=== PATIENT | female | born 1960 | race Caucasian/White ===

== ENCOUNTER 2019-01-21 10:25 | Outpatient (CLI) | payer OTHER ==
--- NOTE | 2019-01-21 13:04 | RAD ---
CERVICAL SPINE SERIES 3 VIEWS WITH FLEXION AND EXTENSION: Date: 01/21/19 HISTORY: Neck pain. FINDINGS: There are severe arthritic changes of the spine. There is marked degenerative disc narrowing at C4-5, C5-6, and C6-7. A retrolisthesis of C4 on C5 reduces in flexion. It is approximately 3-4 mm in the n eutral projection. It does appear to accentuate in extension. IMPRESSION: Retrolisthesis of C4 on C5 which does change between flexion and extension views. Marked arthritic ch anges of the lower cervical spine. POS: C
--- NOTE | 2019-01-21 13:29 | CT ---
CT CERVICAL SPINE: Date: 01/21/19 Multiple axial tomograms obtained with multiplanar reconstruction. INDICATION: Cervical spondylosis with myelopathy. Correlation made to plain films taken today. No other comparison exams. FINDINGS: Moderate degenerative changes of the cervical spine. Loss of disc space with spondylosis prominent at C4-5, C5-6, and C6-7 levels. Slight anterolisthesis at C3-4 is noted and minimal posterolisthesis at C4-5 and C5-6. At C3-4, posterior disc bulge and spondylosis combined with the mild anterolisthesis abuts and mildly flattens the anterior cord. Bilateral foraminal narrowing due to facet and uncinate hypertrophy. At C4-5, disc bulge and spondylosis flattens the anterior cord resulting in moderate cervical canal s tenosis and cord compression. Bilateral foraminal stenosis. At C5-6, disc bulge and spondylosis compress the cord. Bilateral foraminal narrowing due to uncinate hypertrophy. At C6-7, posterior disc bulge and spondylosis abuts and mild compresses the anterior cord. Bilateral foraminal narrowing due to uncinate hypertrophy. IMPRESSION: Degenerative disc changes in the cervical spine with cord compression and foraminal stenosis as descr ibed above. POS: [facility]
--- NOTE | 2019-01-21 14:50 | MRI ---
MRI CERVICAL SPINE: Date: 01/21/19 Multiplanar, multisequential imaging obtained. INDICATION: Cervical spondylosis. Correlation made to CT scan performed today. FINDINGS: Degenerative changes are prominent in the mid cervical spine with loss of disc space at C4-5, C5-6, a nd C6-7. Prominent osteophytes and spondylosis at these levels. Mild anterolisthesis at C3-4. At C3-4, the disc bulge and spondylosis combined with anterolisthesis abuts the anterior cord. Right foraminal encroachment. At C4-5, disc bulge and spondylosis impinges on and mildly compresses the anterior cord. Left foramin al stenosis. At C5-6, there is minimal posterolisthesis. Disc bulge and spondylosis abut and mildly compress the c ord. Severe right foraminal stenosis and moderate left foraminal stenosis. At C6-7, disc bulge and spondylosis abuts and mildly impinges on the anterior cord. Foraminal stenosi s is noted bilaterally. There is increased signal in the cervical cord to the right of midline at C6 which may represent arrington ges of myelomalacia or small focal syrinx. Moderate cord compression is seen at all of these levels a s described above. IMPRESSION: Degenerative changes of multiple levels of the cervical spine with cord compression most pronounced a t C4-5, C5-6, and C6-7 levels as described above. Cord signal changes on the right at the C6 level as noted above. Foraminal stenosis is noted. The foraminal stenosis is better delineated on CT cervical spine also performed today. POS: [facility]
== END 2019-01-21 10:26 | disposition home or self-care (01) ==
LOC: MRI 10:25 → EDSTATUS 12:00
PROVIDERS: ATTEND Neurological Surgery
DX: M47.12 Other spondylosis with myelopathy, cervical region (principal); M50.00 Cervical disc disorder with myelopathy, unspecified cervical region; M48.02 Spinal stenosis, cervical region; G95.20 Unspecified cord compression; M43.12 Spondylolisthesis, cervical region; M46.92 Unspecified inflammatory spondylopathy, cervical region
CPT/HCPCS: 72040; 72125; 72141

== ENCOUNTER 2019-03-21 08:54 | Inpatient (IN) | payer OTHER ==
[2019-03-21 10:48] LABS: #Eosinphils 0.1 thou/uL (0.0-0.7); #Lymphocytes 1.5 thou/uL (1.20-3.40); #Monocytes 0.5 thou/uL (0.11-0.59); #Neutrophils 6.6 thou/uL (1.40-6.50); %Basophils 0.5 % (0.0-1.0); %Eosinophils 0.7 % (0.0-10.0); %Lymphocytes 17.2 % (21.0-51.0); %Monocytes 5.4 % (0.0-10.0); %Neutrophils 76.2 % (42.0-75.0); Hemoglobin 14.8 g/dL (12.0-16.0); Mean Corpuscular HGB CONC 33.5 g/dL (32.0-36.0); Mean Corpuscular Hemoglobin 30.6 pg (27.0-31.0); Mean Corpuscular Volume 91.4 fL (78.0-98.0); Mean Platelet Volume 7.1 fL (7.4-10.4); Platelet Count 334 thou/uL (130-400); RBC Distribution Width 12.9 % (11.5-14.5); Red Blood Cell (RBC) Count 4.82 mill/uL (4.20-5.40); White Blood Cell (WBC) Count 8.6 thou/uL (4.8-10.8)
[2019-03-21 11:11] LABS: Anion Gap 14 mmol/L (10-20); BUN (Urea Nitrogen) 11 mg/dL (9.8-20.1); Calc. Creatinine Clearance 70 mL/min (70-130); Calcium 9.8 mg/dL (7.8-10.44); Carbon Dioxide 24 mmol/L (22-29); Chloride 106 mmol/L (98-107); Estimated GFR-MDRD 82; Glucose 104 mg/dL (70-105); Potassium 3.7 mmol/L (3.5-5.1); Sodium 140 mmol/L (136-145)
[2019-03-21] MEDS ORDERED: Midazolam HCl 2 mg/2 ml Vial ONE ×2 (11:55→12:28)
[2019-03-21] MEDS ORDERED: Fentanyl 100 MCG/2 ML VIAL ONE ×3 (12:28→15:30)
[2019-03-21] MEDS ORDERED: Bacitracin Zinc Ointment 30 gm TUBE ONE (12:40)
[2019-03-21] MEDS ORDERED: Sodium Chloride 0.9% 10 ML ONE (12:40)
[2019-03-21] MEDS ORDERED: Ondansetron HCl/PF 4 MG/2 ML Vial IVP PRN ×2 (13:28→15:33)
[2019-03-21] MEDS ORDERED: Promethazine HCl 25 MG/ML VIAL IM PRN ×3 (13:28→19:07)
[2019-03-21] MEDS ORDERED: Promethazine HCl 25 MG/ML VIAL SLOW IVP PRN ×2 (13:28→15:33)
[2019-03-21] MEDS ORDERED: PACU-Morphine 4MG/ML VIAL SLOW IVP PRN (15:33)
[2019-03-21] MEDS ORDERED: HYDROmorphone 2 MG/ML VIAL SLOW IVP PRN (15:33)
[2019-03-21] MEDS ORDERED: HYDROmorphone 0.5 MG/0.5 ML SYRINGE ONE ×4 (15:49→18:25)
[2019-03-21] MEDS ORDERED: Labetalol HCl 100 MG/20 ML VIAL ONE (17:20)
[2019-03-21] MEDS ORDERED: hydrALAZINE 20 MG/ML VIAL ONE (18:01)
[2019-03-21] MEDS ORDERED: Ondansetron PF 4 MG/2 ML Vial IVP PRN (19:07)
[2019-03-21] MEDS ORDERED: diphenhydrAMINE 50 MG/ML VIAL IVP PRN (19:07)
[2019-03-21] MEDS ORDERED: traMADol HCl 50 MG TAB PO PRN ×2 (19:07)
[2019-03-21] MEDS ORDERED: HYDROcodone/Acetaminophen 10/325 mg Tablet PO PRN (19:07)
[2019-03-21] MEDS ORDERED: diphenhydrAMINE 25 MG CAP PO PRN (19:07)
[2019-03-21] MEDS ORDERED: Mag-Al 1200 mg/1200 mg/30 ML UDCUP PO PRN (19:07)
[2019-03-21] MEDS ORDERED: Milk Of Magnesia 30 ML UDCUP PO PRN (19:07)
[2019-03-21] MEDS ORDERED: Promethazine 25 MG TAB PO PRN (19:07)
[2019-03-21] MEDS ORDERED: Promethazine HCl 12.5 MG SUPP PR PRN (19:07)
[2019-03-21] MEDS ORDERED: Morphine 2 MG/ML SYRINGE SLOW IVP PRN (19:10)
[2019-03-21] MEDS: tiZANidine HCl 4 MG TAB PO PRN (19:13)
[2019-03-21] MEDS ORDERED: PROVENTIL INHALER 6.7 G (200 INHALATIONS) INH PRN (19:15)
[2019-03-21] MEDS ORDERED: Dexamethasone 20 MG/5 ML VIAL ONE (20:13)
[2019-03-21] MEDS ORDERED: Lidocaine 1% PF 5 ML VIAL ONE (20:13)
[2019-03-21] MEDS ORDERED: Ondansetron PF 4 MG/2 ML Vial ONE (20:13)
[2019-03-21] MEDS ORDERED: Rocuronium Bromide 10 MG/ML (10ML VIAL) ONE (20:13)
[2019-03-21] MEDS ORDERED: PROPOFOL 200 MG/20 ML VIAL ONE (20:13)
[2019-03-21] MEDS ORDERED: Ketorolac Tromethamine 30 MG/ML VIAL ONE (20:13)
[2019-03-21] MEDS ORDERED: PHENYLEPHRINE-NS 100 MCG/ML 10 ML SYRINGE ONE (20:13)
[2019-03-21] MEDS ORDERED: Glycopyrrolate 0.2 MG/ML 5 ML SYRINGE ONE (20:13)
[2019-03-21] MEDS: HYDROcodone/Acetaminophen 10/325 mg Tablet PO PRN (20:40)
[2019-03-21] MEDS: CEFAZOLIN 2 GM in Premix Bag 1 BAG IVPB SCH (20:41)
[2019-03-21] MEDS: Sodium Chloride 0.9% 1,000 ML IV SCH (20:42)
--- NOTE | 2019-03-21 20:57 | OP ---
DATE OF PROCEDURE: 03/21/2019 [employer] ARCHITECT: Rosa Maria Caba PA-C PROCEDURE PERFORMED: Anterior cervical diskectomy, C3 through C7, interbody arthrodesis, intervertebral biomechanical device, local morselized autograft, demineralized bone matrix, anterior titanium instrumentation, C3 through C7; posterior approach C4 through C7 decompressive laminectomy, C3 through C7 posterolateral arthrodesis, lateral mass screw instrumentation, demineralized bone matrix, local morselized autograft, C3 through C7. DESCRIPTION OF PROCEDURE: The patient was brought to the operating room and intubated. She was positioned supine with head in modest extension on a gel-filled donut. An incision was made in the right precervical area and dissected medial to the sternocleidomastoid muscle, identified the anterior cervical spinal and level was confirmed by x-ray. We debrided the anterior osteophytes, placed distraction across all affected disk spaces and using the operative microscope and microdissection techniques, completely decompressed the intervertebral disk at the level of spinal cord at each affected level. Next, the bony endplates were decorticated for the purpose of arthrodesis and appropriate-sized intervertebral biomechanical PEEK device was brought into the field, filled with demineralized bone matrix, local morselized autograft, and tapped in place securely at C3-C4, C4-C5, C5-C6, and C6-C7. Next, an anterior plate was brought into the field and secured to C3, C4, C5, C6, and C7 using two 14-mm screws at each level. The wound was then extensively irrigated. MAC hemostasis was secured and the wound was closed in anatomic layers over drain. The patient was then rolled in a prone position on gel-filled chest rolls. The head was fixed in a Virgie grease maker head in a neutral position. An incision was made exposing C2 through C7 and the level was confirmed by x-ray. We performed complete C7, complete C6, complete C5, and complete C4 laminectomies completely decompressing the neural elements from C4 to C7. Next, lateral mass screws were placed at right C3, right C4, right C5, right C6, and right C7. These were secured by herber, connected by screws, which were final tightened. The wound was then extensively irrigated and MAC hemostasis was secured. A combination of demineralized bone matrix and local morselized autograft was laid over the lamina and posterolateral surfaces for the purpose of arthrodesis. Vancomycin powder was applied and the wound was then closed in anatomic layers over drain. Job ID: [id number]
[2019-03-22 00:42] VITALS: BMI 20.7
[2019-03-22] MEDS: tiZANidine HCl 4 MG TAB PO PRN ×4 (00:57→19:59)
[2019-03-22] MEDS: Morphine 4 MG/ML VIAL SLOW IVP PRN ×5 (03:23→20:57)
[2019-03-22] MEDS: CEFAZOLIN 2 GM in Premix Bag 1 BAG IVPB SCH ×3 (03:24→20:57)
[2019-03-22] MEDS: HYDROcodone/Acetaminophen 10/325 mg Tablet PO PRN ×5 (03:33→22:50)
[2019-03-22] MEDS ORDERED: Labetalol HCl 100 MG/20 ML VIAL SLOW IVP PRN (04:43)
[2019-03-22] MEDS ORDERED: hydrALAZINE 20 MG/ML VIAL SLOW IVP PRN (04:43)
[2019-03-22] MEDS: Mometasone 100 MCG HFA INHALER INH SCH ×2 (06:53→18:45)
[2019-03-22] MEDS: Bupropion 150 MG XL TAB PO SCH (08:56)
[2019-03-22] MEDS: Lisinopril 5 MG TAB PO SCH (08:56)
[2019-03-22] MEDS: Sodium Chloride 0.9% 1,000 ML IV SCH ×2 (08:58→22:54)
--- NOTE | 2019-03-22 09:44 | PRG ---
DATE OF SERVICE: 03/22/2019 SUBJECTIVE: The patient is postoperative day #1, status post C3 to C7 anterior and posterior decompression and fusion. Following the surgery, she was transitioned to the Med/Surg floor, where her pain has been well controlled with p.o. Gilbert and p.r.n. morphine. She has been tolerating a regular diet. She has been voiding appropriately. She did have slight elevation of blood pressure overnight; however, p.r.n. labetalol and hydralazine were ordered by Trever Rivers, and she has since been improved. She has been up, walking back and forth to the bathroom and remains slightly unsteady, but no significant worsening or new changes. OBJECTIVE: On exam this morning, the patient is awake and alert, in no acute distress. She has free active range of motion of all extremities. She is hyperreflexive throughout. Her incisions are clean, dry, and intact. There is a small amount of light red blood in bilateral SHAYLA's. Anterior SHAYLA put out 45 mL last night, and posterior SHAYLA put out 105 mL last night. PLAN: We will plan to remove the anterior SHAYLA. Continue to work on pain control and mobilization. I anticipate the patient will be able to return home in the next few days. Job ID: [id number]
--- NOTE | 2019-03-22 14:49 | CON ---
DATE OF CONSULTATION: 03/22/2019 SUBJECTIVE: Ms. Turk is doing reasonably well. We will remove the anterior drain today. Pain control remains an issue and will continue to be an issue for days. She is mobilizing quite well. I updated her and her family. Job ID: [id number]
[2019-03-23] MEDS: tiZANidine HCl 4 MG TAB PO PRN ×3 (02:38→17:41)
[2019-03-23] MEDS: HYDROcodone/Acetaminophen 10/325 mg Tablet PO PRN ×4 (03:42→20:19)
[2019-03-23] MEDS: CEFAZOLIN 2 GM in Premix Bag 1 BAG IVPB SCH (03:46)
[2019-03-23] MEDS: Morphine 4 MG/ML VIAL SLOW IVP PRN (06:09)
[2019-03-23] MEDS: Mometasone 100 MCG HFA INHALER INH SCH ×2 (06:36→17:56)
[2019-03-23] MEDS: Cephalexin 250 MG CAP PO SCH ×4 (08:45→20:19)
[2019-03-23] MEDS: Bupropion 150 MG XL TAB PO SCH (08:45)
[2019-03-23] MEDS: Lisinopril 5 MG TAB PO SCH (08:46)
[2019-03-23] MEDS: Nystatin 500,000 UNITS/5 ML UDCUP SSW SCH ×4 (09:48→20:21)
--- NOTE | 2019-03-23 10:20 | PRG ---
DATE OF SERVICE: 03/23/2019 SUBJECTIVE: The patient is postoperative day #2, status post anterior and posterior decompression and fusion from C3 through C7. She is improving with regard to pain control and mobilization as time goes on. Overnight, her posterior drain had approximately 50 mL of output last night. She is tolerating a regular diet. She is voiding appropriately. OBJECTIVE: On exam this morning, she is sitting up, awake, alert, in no acute distress. She has free active range of motion of all extremities. She remains hyperreflexive. I did not attempt to ambulate the patient at this time. Her incisions are clean, dry, intact. There is some serosanguineous fluid in the posterior SHAYLA bulb. PLAN: We will plan to remove the posterior SHAYLA today. Continue working on pain control and mobilization. I anticipate home in 1 to 2 days. I have consulted Case Management for assistance with discharge planning and possible benefit from home health. I have also asked OT to see her. Job ID: [id number] MTDD
[2019-03-23] MEDS: Sodium Chloride 0.9% 1,000 ML IV SCH (11:16)
[2019-03-24] MEDS: tiZANidine HCl 4 MG TAB PO PRN ×3 (00:27→12:15)
[2019-03-24] MEDS: Sodium Chloride 0.9% 1,000 ML IV SCH ×2 (02:03→13:59)
[2019-03-24] MEDS: HYDROcodone/Acetaminophen 10/325 mg Tablet PO PRN ×3 (02:37→13:54)
[2019-03-24] MEDS: Mometasone 100 MCG HFA INHALER INH SCH (06:57)
[2019-03-24] MEDS: Bupropion 150 MG XL TAB PO SCH (08:17)
[2019-03-24] MEDS: Lisinopril 5 MG TAB PO SCH (08:18)
[2019-03-24] MEDS: Cephalexin 250 MG CAP PO SCH ×2 (08:18→12:15)
[2019-03-24] MEDS: Nystatin 500,000 UNITS/5 ML UDCUP SSW SCH ×2 (08:20→12:15)
[2019-03-24 12:43] VITALS: BP 149/92; TEMP 98.7
--- NOTE | 2019-03-25 03:32 | DIS ---
DATE OF ADMISSION: 03/21/2019 DATE OF DISCHARGE: 03/24/2019 The patient is a 58-year-old female, recently seen in our office for progressive cervical myelopathy and found to have significant cervical stenosis from C3 to C7. She underwent anterior and posterior decompression of C3 to C7 on 03/21/2019. Following the surgery, she was transitioned to the Med/Surg floor, where her pain has been well controlled with p.o. medications, she has been tolerating a regular diet, and she has been voiding appropriately. She has mobilized appropriately with the assistance of PT and OT. Both her anterior and posterior SHAYLA drains trended downward and were removed on postoperative day #1 and postoperative day #2 respectively. We will plan to dismiss the patient to home. I have discussed home care precautions and will follow up with the patient in approximately 2 weeks. She has been provided with scripts for Jupiter, Zanaflex, and Keflex. I will ask case management to arrange home health physical therapy. Job ID: [id number]
--- NOTE | 2019-03-27 16:46 | EKG ---
Test Reason : PREOP Blood Pressure : / mmHG Vent. Rate : 095 BPM Atrial Rate : 095 BPM P-R Int : 124 ms QRS Dur : 082 ms QT Int : 340 ms P-R-T Axes : 065 078 071 degrees QTc Int : 427 ms Normal sinus rhythm Normal ECG No previous ECGs available Confirmed by MIRTA GÓMEZ (2) on 03/27/2019 4:46:48 PM Referred By: GENARO Confirmed By:MIRTA GÓMEZ
== END 2019-03-24 15:50 | disposition home or self-care (01) | DRG 454 ==
LOC: SURG A 08:54
PROVIDERS: ADMIT Neurological Surgery; ATTEND Neurological Surgery
PROC: 0RG20A0 Fusion of 2 or more Cervical Vertebral Joints with Interbody Fusion Device, Anterior Approach, Anterior Column, Open Approach (ICD-10-PCS; principal; 2019-03-21)
PROC: 0RG2071 Fusion of 2 or more Cervical Vertebral Joints with Autologous Tissue Substitute, Posterior Approach, Posterior Column, Open Approach (ICD-10-PCS; 2019-03-21)
PROC: 01N10ZZ Release Cervical Nerve, Open Approach (ICD-10-PCS; 2019-03-21)
PROC: 0RB30ZZ Excision of Cervical Vertebral Disc, Open Approach (ICD-10-PCS; 2019-03-21)
PROC: 4A11X4G Monitoring of Peripheral Nervous Electrical Activity, Intraoperative, External Approach (ICD-10-PCS; 2019-03-21)
DX: M48.02 Spinal stenosis, cervical region (principal); G99.2 Myelopathy in diseases classified elsewhere; J44.9 Chronic obstructive pulmonary disease, unspecified; Z90.710 Acquired absence of both cervix and uterus; Z90.49 Acquired absence of other specified parts of digestive tract
CPT/HCPCS: 36415; 76000; 80048; 85025; 93005; 93010; 94640; C1713; C1768; C1776; J0360; J0690; J1100; J1170; J1885; J2001; J2250; J2270; J2405; J2704; J3010; J3370; J3490; J7620

== ENCOUNTER 2019-04-07 11:14 | Outpatient (CLI) | payer OTHER ==
--- NOTE | 2019-04-07 12:27 | RAD ---
CERVICAL SPINE 3 VIEWS: Date: 04/07/19 HISTORY: Postop follow-up. FINDINGS: Postop changes are noted. Skin rober are seen posteriorly. Anterior plate and screws are in place transfixing C3, C4, C5, C6, and C7. Interbody disc implants ar e seen at all these levels. There are posterior pedicle screws at these levels with rods on the right . The vertebral bodies maintain normal height and alignment. IMPRESSION: Postoperative changes as described. POS: [facility]
== END 2019-04-07 11:15 | disposition home or self-care (01) ==
LOC: TBSIIMAG 11:14
PROVIDERS: ATTEND Neurological Surgery
DX: M47.12 Other spondylosis with myelopathy, cervical region (principal); Z98.890 Other specified postprocedural states
CPT/HCPCS: 72040

== ENCOUNTER 2019-05-19 13:06 | Outpatient (CLI) | payer OTHER ==
--- NOTE | 2019-05-19 14:48 | RAD ---
CERVICAL SPINE RADIOGRAPHS 3 VIEWS: DATE: 05/19/2019. PROVIDED CLINICAL HISTORY: Postop. FINDINGS: Comparison 04/07/2019. Interval removal of cutaneous rober dorsally near the midline. Postoperati ve changes are again demonstrated involving the cervical spine without evidence for hardware complica tion. No prevertebral soft tissue swelling apparent. The visualized lung apices appear clear. IMPRESSION: Postoperative changes. POS: OFF
== END 2019-05-19 13:07 | disposition home or self-care (01) ==
LOC: TBSIIMAG 13:06
PROVIDERS: ATTEND Neurological Surgery
DX: M48.02 Spinal stenosis, cervical region (principal); Z98.890 Other specified postprocedural states
CPT/HCPCS: 72040

== ENCOUNTER 2019-08-18 14:38 | Outpatient (CLI) | payer OTHER ==
--- NOTE | 2019-08-18 15:20 | RAD ---
CERVICAL SPINE THREE VIEWS: 08/18/19 HISTORY: Neck pain, bilateral arm pain. Patient is postop. COMPARISON: 05/19/19 study. Postoperative changes are again noted. Anterior plate and screws extending from C3 to C7 are noted an d right sided facet screws are also seen. Overall appearance is stable. IMPRESSION: Stable postop change. POS: [facility]
== END 2019-08-18 14:39 | disposition home or self-care (01) ==
LOC: TBSIIMAG 14:38
PROVIDERS: ATTEND Neurological Surgery
DX: M47.12 Other spondylosis with myelopathy, cervical region (principal); Z98.890 Other specified postprocedural states
CPT/HCPCS: 72040

== ENCOUNTER 2020-04-19 15:00 | Outpatient (CLI) | payer OTHER ==
--- NOTE | 2020-04-19 15:44 | RAD ---
EXAM: 2 views of the lumbosacral spine HISTORY: Low back pain COMPARISON: None FINDINGS: 3 views of the lumbosacral spine shows normal height and alignment of the vertebral bodies and intervertebral discs without fracture or subluxation. Mild osteophytes are seen throughout the lumbar spine. Moderate posterior facet arthrosis is seen in the lower lumbosacral spine. The sacroiliac joints are unremarkable. Vascular calcifications are seen. IMPRESSION: Degenerative changes of the lumbar spine without acute osseous abnormality.
--- NOTE | 2020-04-19 15:45 | RAD ---
EXAM: Chest 2 views: HISTORY: Chest pain COMPARISON: 02/13/2017 FINDINGS: There is a normal-sized cardiomediastinal silhouette. Atherosclerotic calcifications are seen in the aorta. There is a 2.0 cm area of nodularity at the left upper lobe. No pleural effusion is seen. Hardware is in the spine. IMPRESSION: Left temporal lobe nodularity. A CT the chest with contrast is recommended for further evaluation.
--- NOTE | 2020-04-19 15:52 | RAD ---
2 views of the cervical spine: 04/19/2020 COMPARISON: 11/15/2019 HISTORY: Disability exam FINDINGS: Stable anterior discectomy and fusion hardware present at the C3-4 through C6-7 level. Bila teral laminectomy changes are noted at the C3-C7 levels. Posterior fusion hardware present at the C3-C7 level with a right-sided vertically oriented interlocking herber and right-sided pedicle screws at the C3 through C7 levels. The postoperative hardware is stable when compared to the prior exam. No significant anterolisthesis or retrolisthesis. No prevertebral soft tissue abnormality. IMPRESSION: Extensive stable postoperative change as above.
== END 2020-04-19 15:01 | disposition home or self-care (01) ==
LOC: BICRAD 15:00
PROVIDERS: ATTEND Internal Medicine
DX: Z02.71 Encounter for disability determination (principal); M47.816 Spondylosis without myelopathy or radiculopathy, lumbar region; J98.4 Other disorders of lung; Z98.1 Arthrodesis status
CPT/HCPCS: 71046; 72040; 72100

== ENCOUNTER 2021-03-11 08:57 | Outpatient (CLI) | payer OTHER | END 2021-03-11 08:58 | disposition home or self-care (01) | LOC: BICRAD 08:57 | PROVIDERS: ATTEND Internal Medicine Pulmonary Disease | DX: R06.00 Dyspnea, unspecified (principal); R91.1 Solitary pulmonary nodule | CPT/HCPCS: 71046 ==